=== PATIENT | male | born 1990 | race Hispanic/Latino ===

== ENCOUNTER 2016-11-03 20:00 | Emergency (ER) | payer OTHER ==
[~2016-11-03] VITALS: Ht 172.7 cm; Wt 78.2 kg
[2016-11-03 20:04] VITALS: BP 124/76; PULSE 83; RESP 16; O2SAT 97
--- NOTE | 2016-11-03 20:14 | ED.REPORT ---
HPI-General Illness Date of Service November 03, 2016 ED Provider: Dr. Renny Sims M.D. The patient is a 25 year old male with a history of polysubstance abuse who presents to the ED reporting a productive cough with black sputum onset three months ago. Associated symptoms include intermittent nausea, insomnia, lower back pain, and fatigue. The patient denies other symptoms. He is concerned about TB exposure because his girlfriend was tested recently and was called about a result but has not yet received definitive answers. The patient began using heroin and cocaine approximately 1.5-2 years ago and had been using regularly until he quit on 09/30/2016. He has been clean from those drugs since but admits to using methamphetamines once last week. He also used Suboxone " from the street" for a short time after stopping heroin. The patient now frequently struggles with cravings and withdrawal symptoms. Nursing Notes Stated Complaint: TB EXPOSURE Chief Complaint: Respiratory Complaints Nursing Notes Reviewed: Yes Allergies: Coded Allergies: No Known Allergies (Unverified , 11/03/16) General Time Seen by MD: 20:13 Chief Complaint Cough Hx Obtained From: Patient Arrived By: Walk-in Sudden in Onset?: Yes Onset Occurred: More than a week ago... (Three months) Symptom Duration: Since onset Location: : Back Severity: Current: Moderate Severity: Maximum: Moderate Pertinent Negative: Relieved by nothing Context Related History: Reports Drug dependence Recent Healthcare: No recent doctor visit Past Medical History Past Medical History None reported Past Surgical History None reported Smoking History Unknown if Ever Smoker Social History Drug Use: In recovery (Quit smoking heroin and cocaine 09/30/16 ), Meth Other Social History: Lives with parents Ambulatory Status Independent Review of Systems + Productive cough with black sputum Full Review of Systems Constitutional: Reports: Fatigue Respiratory: Denies: Shortness of breath GI: Reports: Nausea (Intermittent), Denies: Diarrhea, Vomiting Musculoskeletal: Reports: Back pain Psychiatric: Reports: Insomnia Complete sys rev & neg: except as marked. Physical Exam Vital Signs Vital Signs Date Time Temp Pulse Resp B/P Pulse Ox O2 Delivery O2 Flow Rate FiO2 11/03/16 20:04 36.0 83 16 124/76 97 Room Air Initial VS: Reviewed Head / Eyes: Atraumatic, Normocephalic ENT: Conjunctiva normal, No scleral icterus Neck: Supple, Full range of motion Respiratory: Breath sounds normal, Clear to auscultation, No respiratory distress Cardiovascular: Regular rate & rhythm, Heart sounds normal Skin: Warm, Dry, No cyanosis Neurologic: Alert, Oriented, Nonfocal Psychiatric: Mood/affect normal, Behavior normal, Normal thought content General/Constitutional: Awake, Alert Interpretation & Diagnostics Lab Results Interpretation Test 11/03/16 21:10 Hold Bob Top Tube Received (Received) Hepatitis C Comment . X-Ray Chest Interpretation Chest Xray Interpretation: IMPRESSION: No acute cardiopulmonary pathology. Dictated by: Patrick Hancock M.D. on 11/03/2016 at 22:01 View: Portable, 1 view Interpretation / Wet Read by: Interpret - Radiologist Re-Eval/Medical Decision Time of Eval: 21:37 Patient Status: Condition improved Re-Evaluation/Progress Note: Patient is feeling sleepy but otherwise unchanged after the Buprenorphine. Time of Eval: 22:09 Patient Status: Condition improved Re-Evaluation/Progress Note: Discussed with patient x-ray results, diagnosis, and plan for discharge. Follow-up and return to the ER instructions given. Patient agrees with plan for care and all questions were addressed. Time of Eval: 22:59 Patient Status: Condition improved Re-Evaluation/Progress Note: Patient rechecked. Discussed plan for discharge. Counseled Regarding: Diagnosis, Need for follow-up, When/why to return to ED Discharge & Departure Primary Impression: Cough Additional Impressions: Cocaine addiction Opiate addiction Disposition: Home Discharge Condition All VS Reviewed: Yes Condition: Improved Additional Instructions: Thank you for entrusting us with your care. Your chest x-ray was normal today. The lab results will be available within the next few days. Return to the laboratory on [address], "[facility]" on Friday morning to have the special tuberculosis test drawn (quantiferon) Please take Suboxone as prescribed. Call your primary care provider on Friday for a follow-up with [facility] on Friday, let them know that you want to see me. If you have trouble with this please give me a call, . Return to the ER with any new or worsening symptoms. Referrals: William Lala MD, PhD (PCP) [facility] Scribe Attestation Portions of this note were transcribed by Najma Kirkpatrick. I, Dr. Sims, personally performed the history, physical exam, and medical decision-making; I reviewed and confirmed the accuracy of the information in the transcribed note. Signed by: James Aj, 11/03/2016, 23:25 copies to: William Lala MD, PhD ; [facility] Renny Sims MD November 03, 2016 20:14 NAJMA KIRKPATRICK November 03, 2016 20:25
[2016-11-03] MEDS ORDERED: Buprenorphine 2 mg SL Tablet SL ONE (20:45)
--- NOTE | 2016-11-03 22:04 | DRSVH ---
PROCEDURE: X-RAY CHEST ONE VIEW, PORTABLE ([id number]) INDICATIONS: cough TECHNIQUE: One view of the chest was acquired. COMPARISON: None. FINDINGS: Surgical changes and devices: None. Lungs and pleura: No pleural effusions or pneumothorax. Lungs are clear. Mediastinum: Mediastinal contours appear normal. Heart size is normal. Bones and chest wall: No suspicious bony lesions. Overlying soft tissues appear unremarkable. Roun d benign-appearing density projects adjacent to the distal clavicle consistent with a tiny area of be nign calcification or a skin lesion. IMPRESSION: No acute cardiopulmonary pathology. Dictated by: Patrick Hancock M.D. on 11/03/2016 at 22:01 Approved by: Patrick Hancock M.D. on 11/03/2016 at 22:03
[2016-11-06 00:12] LABS: Hepatitis A Antibody IgM Negative (Negative); Hepatitis B Core Antibody IgM Negative (Negative)
== END 2016-11-03 23:16 | disposition home or self-care (01) ==
LOC: SED 20:00
DX: R05 Cough (principal); F14.20 Cocaine dependence, uncomplicated; F11.20 Opioid dependence, uncomplicated; R11.0 Nausea; G47.00 Insomnia, unspecified; M54.5 Low back pain; R53.83 Other fatigue; Z20.1 Contact with and (suspected) exposure to tuberculosis
CPT/HCPCS: 36415; 71010; 86705; 86709; 87340; 87341; 99284; G0433; G0472